=== PATIENT | female | born 1995 | race Caucasian/White ===

== ENCOUNTER → 2018-06-24 21:18 | Outpatient (CLI) | payer OTHER, SELFPAY ==
[2018-06-24 19:42] VITALS: BMI 26.9
[2018-06-24 21:57] LABS: Pregnancy, Serum, hCG Quali. NEGATIVE Negative (0-9 Nonpreg); hCG Titer Quant., Serum < 1 mIU/mL (1-3)
[2018-06-24 22:09] LABS: Internal QC Validated? YES +Cl - CLEAR BKGD
== END ==
PROVIDERS: Visit Provider Nurse Practitioner
DX: N91.2 Amenorrhea, unspecified (principal)
CPT/HCPCS: 84702; 84703